=== PATIENT | female | born 1970 | race Caucasian/White ===

== ENCOUNTER 2016-09-23 01:23 | Emergency (ER) | payer OTHER ==
--- NOTE | 2016-09-23 02:32 | DIAGNOSTIC IMAGING REPORT ---
PROCEDURE: XR CHEST 2 VIEW INDICATION: SHORTNESS OF BREATH TECHNIQUE: PA and lateral views. COMPARISON: None. FINDINGS: Lungs are clear. Heart and mediastinum are normal. There is an epidural infusion device overlying the posterior thoracic spinal canal. Thorax is otherwise normal. Status post cholecystectomy. IMPRESSION: 1. Negative chest.
--- NOTE | 2016-09-23 02:38 | DIAGNOSTIC IMAGING REPORT ---
PROCEDURE: XR SOFT TISSUE NECK INDICATION: DIFFICULTY SWALLOWING TECHNIQUE: AP and lateral views. COMPARISON: None. FINDINGS: Allowing for extension of the neck, soft tissues are within normal limits, including the airway, laryngeal ventricle, and epiglottis. Mild prominence of the nasopharyngeal structures which is within normal limits). Impacted posterior upper molars. appears normal. IMPRESSION: 1. Negative soft tissues of the neck.
--- NOTE | 2016-09-23 02:56 | ED CLINICAL REPORT ---
Clinical Report - Physicians/Mid Levels [facility] [address] [place] [address] 09/23/2016 1:25 Patient: KAMERON BOWMAN Time Seen: 01:44 Sep 23 2016. Arrived- By private vehicle. Historian- patient. CPT: ER phys charges level 3 (#[id number]). HISTORY OF PRESENT ILLNESS Chief Complaint: COUGH. dyspnea. This started just prior to arrival ( pt reports a "coughing attack" lasting about 30 minutes unable to catch breath. not c/o sore throat and difficulty talking). She has had a cough. and is still present. The illness is described as moderate. The patient has had a cough, difficulty breathing and a sore throat. No chest discomfort, fever, muscle aches, chills or sinus pressure. Additional history - No known contact with a sick individual. Similar symptoms previously: Recent medical care: Not recently seen/assessed. REVIEW OF SYSTEMS No headache, nausea, vomiting, diarrhea or abdominal pain. No pedal edema, calf pain, difficulty with urination, skin rash or enlarged lymph nodes. All systems otherwise negative, except as recorded above. PAST HISTORY Migraine Headache. Dysautonomia. Asthma. Chronic regional pain syndrome. ADDITIONAL SURGERIES: Spinal cord stimulator. Medications: Unable to Obtain. Allergies: Unknown. SOCIAL HISTORY Never smoker. No alcohol use or drug use. ADDITIONAL NOTES The nursing notes have been reviewed. PHYSICAL EXAM Vital Signs: 09/23/2016 01:29 BP: 109/76. HR: 72. RR: 18. O2 saturation: 99%. Temp: 97.3 F. Pain level now: 7/10. Appearance: Alert. Eyes: Eyes normal inspection. ENT: Ears normal. Nose normal. Pharynx normal. Uvula midline. Neck: Normal inspection. Neck supple. CVS: Normal heart rate and rhythm. Heart sounds normal. Pulses normal. Respiratory: No respiratory distress. Breath sounds normal. Abdomen: Soft and nontender. Back: Normal inspection. Skin: Skin warm. Normal skin color. No rash. Extremities: Extremities exhibit normal ROM. Neuro: Oriented X 3. No motor deficit. No sensory deficit. LABS, X-RAYS, AND EKG Chest X-ray: Normal Chest X-Ray. Note - Tests: (soft tissue neck negative.). PROGRESS AND PROCEDURES Course of Care: Pt did not have any respiratory distress or cough while in the ER. Albuterol HHN: Patient is stable. Symptoms better. Patient/family counseled. Disposition: Discharged. Condition: stable and improved. CLINICAL IMPRESSION Transient coughing spell due to airway irritant. INSTRUCTIONS Drink plenty of fluids. Warnings: Further evaluation is necessary. GENERAL WARNINGS: Return or contact your physician immediately if your condition worsens or changes unexpectedly, if not improving as expected, or if other problems arise. Prescription Medications: Albuterol HFA oral inhaler: inhale 1-2 puffs via spacer every 4 hours as needed for wheezing, difficulty breathing or shortness of breath, until symptoms improve. Dispense one (1) unit. No refill. Follow-up: Follow up with your doctor as needed. Understanding of the discharge instructions verbalized by patient and family. (Electronically signed by Saroj Blount MD 09/27/2016 20:52)
--- NOTE | 2016-09-23 02:56 | ED ORDER SUMMARY ---
..... Patient: KAMERON BOWMAN OrderSheet [facility] VisitID: [id number] [address] [place] [address] 46y, F Registration Date/Time: 09/23/2016 ORDER SHEET Weight: 52.1 kg (stated) Allergies: Unknown GENERAL ORDERS: Chest 2V Urgent (01:50 09/23/2016 Yeyo CHRISTINE) (Ack 2:07 [facility] Subscription Agent) (2:20 [facility] Subscription Agent) Soft Tissue Neck Urgent (:50 09/23/2016 Yeyo CHRISTINE) (Ack 2:07 [facility] Subscription Agent) (2:20 [facility] Subscription Agent) MEDICATION ORDERS: Albuterol Neb Tx 2.5 mg (NOW, HHN) (01:50 09/23/2016 Yeyo CHRISTINE) (Ack 1:54 [facility] R.N.) ([facility] IV FLUIDS: ORDER SHEET NOTES: [Electronically signed by Kimberly Zapata R.N. (03:38 09/23/2016)] [Electronically signed by Saroj Blount MD (20:52 09/27/2016)] [Electronically locked/signed by Kimberly Zapata R.N. (03:38 09/23/2016)]
--- NOTE | 2016-09-23 02:56 | ED ORDER SUMMARY ---
..... Patient: KAMERON BOWMAN OrderSheet [facility] VisitID: [id number] [address] [place] [address] 46y, F Registration Date/Time: 09/23/2016 ORDER SHEET Weight: 52.1 kg (stated) Allergies: Unknown GENERAL ORDERS: Chest 2V Urgent (01:50 09/23/2016 Yeyo CHRISTINE) (Ack 2:07 [facility] Packer Denture) (2:20 [facility] Packer Denture) Soft Tissue Neck Urgent (:50 09/23/2016 Yeyo CHRISTINE) (Ack 2:07 [facility] Packer Denture) (2:20 [facility] Packer Denture) MEDICATION ORDERS: Albuterol Neb Tx 2.5 mg (NOW, HHN) (01:50 09/23/2016 Yeyo CRHISTINE) (Ack 1:54 Arpit R.N.) (2:[facility] IV FLUIDS: ORDER SHEET NOTES: [Electronically signed by Kimberly Zapata R.N. (03:38 09/23/2016)] [Electronically signed by Saroj Blount MD (20:52 09/27/2016)] [Electronically locked/signed by Kimberly Zapata R.N. (03:38 09/23/2016)]
--- NOTE | 2016-09-23 02:56 | ED NURSING NOTES ---
Clinical Report - Nurses [place] [address] [place] [address] 09/23/2016 1:25 Patient: KAMERON BOWMAN TRIAGE Triage time 01:25. Acuity: LEVEL 3. Chief Complaint: SHORTNESS OF BREATH and COUGH. --01:36 Kimberly Zapata R.N. 01:29 09/23/16. BP: 109/76 taken on the right arm, while lying. HR: 72 (regular and normal rate). RR: 18 (regular and unlabored). O2 saturation: 99% on room air. Temp: 97.3 F (oral). Pain level now: 11/14. --01:36 Kimberly Zapata R.N. Weight: 52.1 kg stated. Height/Length: 63 inches Per Patient. BMI: 20.4. --01:30 Kimberly Zapata R.N. Medications Unable to Obtain. --03:37 Kimberly Zapata R.N. Allergies Unknown. --03:37 Kimberly Zapata R.N. History Arrived by EMS. Historian: patient. Unaccompanied. Primary physician (benito). This started just prior to arrival. ( pt reports a "coughing attack" lasting about 30 minutes unable to catch breath. not c/o sore throat and difficulty talking). She has had a cough. PAST MEDICAL HX: Last normal menstrual period- 7 days ago. SOCIAL HX: Never smoker. No alcohol use or drug use. No infectious disease exposure. ABUSE ASSESSMENT: No report of abuse. SELF HARM ASSESSMENT: A self harm assessment was performed. The patient answered "no" to the question "Have you recently felt down, depressed, or hopeless?", "Have you noticed less interest or pleasure in doing things?", "Do you have thoughts of harming or killing yourself?", "Are you here because you tried to hurt yourself?", "Have you ever tried to hurt yourself before today?", "Have you recently had thoughts about harming or killing others?" and "Do you have any dangerous items in your possession?". FALL RISK ASSESSMENT: Fall risk assessment completed. No fall risk identified. NUTRITIONAL RISK ASSESSMENT: The nutritional risk assessment revealed no deficiencies. FUNCTIONAL ASSESSMENT: Functional assessment: no impairments noted. LEARNING NEEDS ASSESSMENT: The learning needs assessment revealed no barriers. SKIN INTEGRITY ASSESSMENT: Skin integrity risk assessment completed. No skin integrity risk identified. --01:36 Kimberly Zapata R.N. SOCIAL HX: ( pt unable to give med hx and allergy hx at this time.). --03:37 Kimberly Zapata R.N. PROBLEMS: Migraine Headache. Dysautonomia. Asthma. Chronic regional pain syndrome. --01:36 Kimberly aZpata R.N. ADDITIONAL SURGERIES: Spinal cord stimulator. --01:36 Kimberly Zapata R.N. Interventions ID band on patient. --01:36 Kimberly Zapata R.N. PHYSICAL ASSESSMENT To room via stretcher. GENERAL / NEURO / PSYCH: Alert. Oriented X 4. Appears in no acute distress. HEENT: Mucous membranes are pink. RESPIRATORY: No respiratory distress. Respirations not labored. Chest nontender. Breath sounds within normal limits. CVS: Normal sinus rhythm noted. Capillary refill less than 2 seconds. GI / : Abdomen soft and nontender. Bowel sounds within normal limits. SKIN: Skin is warm and dry. Normal skin turgor. --01:37 Kimberly Zapata R.N. NURSING PROGRESS NOTES Two patient identifiers checked. Call light placed in reach. Side rails up x 2. Bed placed in lowest position. Brakes of bed on. --01:37 Kimberly Zapata R.N. Patient ready for evaluation- chart flagged. --01:37 Kimberly Zapata R.N. 01:40 09/23/2016 Site #1 started via IV in the right antecubital space with an 20g angiocath, with aseptic technique and good blood return; one attempt. Blood drawn: rainbow set. Labeled in the presence of the patient and sent to the lab. Saline lock flushed with saline. --01:48 Bret Carranza R.N. DISPOSITION / DISCHARGE Departure time: 0321. Condition at departure: improved. No learning barriers present. Discharge instructions provided and reviewed with the patient. Reviewed medication(s) side effects, precautions, dosing and course information. Prescription(s) given to the patient. Patient verbalized understanding. Written instructions provided in Spanish. The patient was discharged home and accompanied by friend. She left the Emergency Department ambulatory and via private vehicle. Driving (friend). --03:36 Kimberly Zapata R.N. 03:24 09/23/16. BP: 142/74. HR: 70. RR: 18. O2 saturation: 99% on room air. Temp: deferred. Pain level now: 07/15. --03:36 Kimberly Zapata R.N. 03:20 09/23/2016 Site #1 removed upon discharge. Catheter intact. Manual pressure and bandage applied. --03:36 Kimberly Zapata R.N. Locked/Released at 09/23/2016 3:38 by Kimberly Zapata R.N.
--- NOTE | 2016-09-23 02:56 | ED CLINICAL REPORT ---
Clinical Report - Physicians/Mid Levels [facility] [address] [place] [address] 09/23/2016 1:25 Patient: KAMERON BOWMAN Time Seen: 01:44 Sep 23 2016. Arrived- By private vehicle. Historian- patient. CPT: ER phys charges level 3 (#[id number]). HISTORY OF PRESENT ILLNESS Chief Complaint: COUGH. dyspnea. This started just prior to arrival ( pt reports a "coughing attack" lasting about 30 minutes unable to catch breath. not c/o sore throat and difficulty talking). She has had a cough. and is still present. The illness is described as moderate. The patient has had a cough, difficulty breathing and a sore throat. No chest discomfort, fever, muscle aches, chills or sinus pressure. Additional history - No known contact with a sick individual. Similar symptoms previously: Recent medical care: Not recently seen/assessed. REVIEW OF SYSTEMS No headache, nausea, vomiting, diarrhea or abdominal pain. No pedal edema, calf pain, difficulty with urination, skin rash or enlarged lymph nodes. All systems otherwise negative, except as recorded above. PAST HISTORY Migraine Headache. Dysautonomia. Asthma. Chronic regional pain syndrome. ADDITIONAL SURGERIES: Spinal cord stimulator. Medications: Unable to Obtain. Allergies: Unknown. SOCIAL HISTORY Never smoker. No alcohol use or drug use. ADDITIONAL NOTES The nursing notes have been reviewed. PHYSICAL EXAM Vital Signs: 09/23/2016 01:29 BP: 109/76. HR: 72. RR: 18. O2 saturation: 99%. Temp: 97.3 F. Pain level now: 7/10. Appearance: Alert. Eyes: Eyes normal inspection. ENT: Ears normal. Nose normal. Pharynx normal. Uvula midline. Neck: Normal inspection. Neck supple. CVS: Normal heart rate and rhythm. Heart sounds normal. Pulses normal. Respiratory: No respiratory distress. Breath sounds normal. Abdomen: Soft and nontender. Back: Normal inspection. Skin: Skin warm. Normal skin color. No rash. Extremities: Extremities exhibit normal ROM. Neuro: Oriented X 3. No motor deficit. No sensory deficit. LABS, X-RAYS, AND EKG Chest X-ray: Normal Chest X-Ray. Note - Tests: (soft tissue neck negative.). PROGRESS AND PROCEDURES Course of Care: Pt did not have any respiratory distress or cough while in the ER. Albuterol HHN: Patient is stable. Symptoms better. Patient/family counseled. Disposition: Discharged. Condition: stable and improved. CLINICAL IMPRESSION Transient coughing spell due to airway irritant. INSTRUCTIONS Drink plenty of fluids. Warnings: Further evaluation is necessary. GENERAL WARNINGS: Return or contact your physician immediately if your condition worsens or changes unexpectedly, if not improving as expected, or if other problems arise. Prescription Medications: Albuterol HFA oral inhaler: inhale 1-2 puffs via spacer every 4 hours as needed for wheezing, difficulty breathing or shortness of breath, until symptoms improve. Dispense one (1) unit. No refill. Follow-up: Follow up with your doctor as needed. Understanding of the discharge instructions verbalized by patient and family. (Electronically signed by Saroj Blount MD 09/27/2016 20:52)
--- NOTE | 2016-09-27 20:52 | ED MAR SUMMARY ---
..... Medication Administration Record [facility] [address] [place] [address] Patient: KAMERON BOWMAN Visit ID: [id number] 46y, F Weight: 52.1 kg Height/Length: 63 in BMI: 20.4 ALLERGIES: Unknown Given 02:03 09/23/2016 Luis Jones, Medication Administered: ALBUTEROL [NEB TX], Dose: 1 unit dose Neb TX. Medication Ordered: Albuterol Neb Tx 2.5 mg (NOW, N).
--- NOTE | 2016-09-27 20:52 | ED MAR SUMMARY ---
..... Medication Administration Record [facility] [address] [place] [address] Patient: KAMERON BOWMAN Visit ID: [id number] 46y, F Weight: 52.1 kg Height/Length: 63 in BMI: 20.4 ALLERGIES: Unknown Given 02:03 09/23/2016 Luis Jones, Medication Administered: ALBUTEROL [NEB TX], Dose: 1 unit dose Neb TX. Medication Ordered: Albuterol Neb Tx 2.5 mg (NOW, N).
--- NOTE | 2016-09-27 20:52 | ED DISCHARGE INSTRUCTIONS ---
Patient: KAMERON BOWMAN General Instructions [facility] VisitID: [id number] [address] [place] [address] 46y, F Registration Date/Time: 09/23/2016 Transient coughing spell due to airway irritant. INSTRUCTIONS Drink plenty of fluids. Warnings: Further evaluation is necessary. GENERAL WARNINGS: Return or contact your physician immediately if your condition worsens or changes unexpectedly, if not improving as expected, or if other problems arise. Prescription Medications: Albuterol HFA oral inhaler: inhale 1-2 puffs via spacer every 4 hours as needed for wheezing, difficulty breathing or shortness of breath, until symptoms improve. Dispense one (1) unit. No refill. Follow-up: Follow up with your doctor as needed. Understanding of the discharge instructions verbalized by patient and family. ADDITIONAL INFORMATION Albuterol Sulfate Pressurized inhalation, suspension What is this medicine? ALBUTEROL (al BYOO ter ole) is a bronchodilator. It helps open up the airways in your lungs to make it easier to breathe. This medicine is used to treat and to prevent bronchospasm. How should I use this medicine? This medicine is for inhalation through the mouth. Follow the directions on your prescription label. Take your medicine at regular intervals. Do not use more often than directed. Make sure that you are using your inhaler correctly. Ask you doctor or health care provider if you have any questions. Talk to your journeyman patternmaker regarding the use of this medicine in children. Special care may be needed. What side effects may I notice from receiving this medicine? Side effects that you should report to your doctor or health hearing care practitioner as soon as possible: allergic reactions like skin rash, itching or hives, swelling of the face, lips, or tongue breathing problems chest pain feeling faint or lightheaded, falls high blood pressure irregular heartbeat fever muscle cramps or weakness pain, tingling, numbness in the hands or feet vomiting Side effects that usually do not require medical attention (report to your doctor or health hearing care practitioner if they continue or are bothersome): cough difficulty sleeping headache nervousness or trembling stomach upset stuffy or runny nose throat irritation unusual taste What may interact with this medicine? anti-infectives like chloroquine and pentamidine caffeine cisapride diuretics medicines for colds medicines for depression or for emotional or psychotic conditions medicines for weight loss including some herbal products methadone some antibiotics like clarithromycin, erythromycin, levofloxacin, and linezolid some heart medicines steroid hormones like dexamethasone, cortisone, hydrocortisone theophylline thyroid hormones What if I miss a dose? If you miss a dose, use it as soon as you can. If it is almost time for your next dose, use only that dose. Do not use double or extra doses. Where should I keep my medicine? Keep out of the reach of children. Store at room temperature between 15 and 30 degrees C (59 and 86 degrees F). The contents are under pressure and may burst when exposed to heat or flame. Do not freeze. This medicine does not work as well if it is too cold. Throw away any unused medicine after the expiration date. Inhalers need to be thrown away after the labeled number of puffs have been used or by the expiration date; whichever comes first. Ventolin HFA should be thrown away 12 months after removing from foil pouch. Check the instructions that come with your medicine. What should I tell my health care provider before I take this medicine? They need to know if you have any of the following conditions: diabetes heart disease or irregular heartbeat high blood pressure pheochromocytoma seizures thyroid disease an unusual or allergic reaction to albuterol, levalbuterol, sulfites, other medicines, foods, dyes, or preservatives or trying to get breast-feeding What should I watch for while using this medicine? Tell your doctor or health hearing care practitioner if your symptoms do not improve. Do not use extra albuterol. If your asthma or bronchitis gets worse while you are using this medicine, call your doctor right away. If your mouth gets dry try chewing sugarless gum or sucking hard candy. Drink water as directed. You have been given the following additional information: Albuterol Sulfate Pressurized inhalation, suspension (Electronically signed by Saroj Blount MD 09/27/2016 20:52)
--- NOTE | 2016-09-27 20:52 | ED MED RECONCILIATION SUMMARY ---
Patient: KAMERON BOWMAN Medication Reconciliation Report [facility] VisitID: [id number] [address] [place] [address] 46y, F Registration Date/Time: 09/23/2016 Weight: 52.1 kg Height/Length: 63 in. BMI: 20.4 ALLERGIES: Unknown The patient's Home Medications are listed below: Unable to obtain. The source(s) of the original Home Medication information: Not obtained. The following Medications were given to the patient in the Emergency Department: Albuterol [Neb Tx] Neb TX 1 unit dose, administered: 09/23/2016 2:03:00 AM The following Medications were prescribed to the patient: Albuterol HFA oral inhaler: inhale 1-2 puffs via spacer every 4 hours as needed for wheezing, difficulty breathing or shortness of breath, until symptoms improve. Dispense one (1) unit. No refill. -- Saroj Blount MD
--- NOTE | 2016-09-27 20:52 | ED DISCHARGE INSTRUCTIONS ---
Patient: KAMERON BOWMAN General Instructions [facility] VisitID: [id number] [address] [place] [address] 46y, F Registration Date/Time: 09/23/2016 Transient coughing spell due to airway irritant. INSTRUCTIONS Drink plenty of fluids. Warnings: Further evaluation is necessary. GENERAL WARNINGS: Return or contact your physician immediately if your condition worsens or changes unexpectedly, if not improving as expected, or if other problems arise. Prescription Medications: Albuterol HFA oral inhaler: inhale 1-2 puffs via spacer every 4 hours as needed for wheezing, difficulty breathing or shortness of breath, until symptoms improve. Dispense one (1) unit. No refill. Follow-up: Follow up with your doctor as needed. Understanding of the discharge instructions verbalized by patient and family. ADDITIONAL INFORMATION Albuterol Sulfate Pressurized inhalation, suspension What is this medicine? ALBUTEROL (al BYOO ter ole) is a bronchodilator. It helps open up the airways in your lungs to make it easier to breathe. This medicine is used to treat and to prevent bronchospasm. How should I use this medicine? This medicine is for inhalation through the mouth. Follow the directions on your prescription label. Take your medicine at regular intervals. Do not use more often than directed. Make sure that you are using your inhaler correctly. Ask you doctor or health care provider if you have any questions. Talk to your window installer regarding the use of this medicine in children. Special care may be needed. What side effects may I notice from receiving this medicine? Side effects that you should report to your doctor or health critical care physician assistant as soon as possible: allergic reactions like skin rash, itching or hives, swelling of the face, lips, or tongue breathing problems chest pain feeling faint or lightheaded, falls high blood pressure irregular heartbeat fever muscle cramps or weakness pain, tingling, numbness in the hands or feet vomiting Side effects that usually do not require medical attention (report to your doctor or health critical care physician assistant if they continue or are bothersome): cough difficulty sleeping headache nervousness or trembling stomach upset stuffy or runny nose throat irritation unusual taste What may interact with this medicine? anti-infectives like chloroquine and pentamidine caffeine cisapride diuretics medicines for colds medicines for depression or for emotional or psychotic conditions medicines for weight loss including some herbal products methadone some antibiotics like clarithromycin, erythromycin, levofloxacin, and linezolid some heart medicines steroid hormones like dexamethasone, cortisone, hydrocortisone theophylline thyroid hormones What if I miss a dose? If you miss a dose, use it as soon as you can. If it is almost time for your next dose, use only that dose. Do not use double or extra doses. Where should I keep my medicine? Keep out of the reach of children. Store at room temperature between 15 and 30 degrees C (59 and 86 degrees F). The contents are under pressure and may burst when exposed to heat or flame. Do not freeze. This medicine does not work as well if it is too cold. Throw away any unused medicine after the expiration date. Inhalers need to be thrown away after the labeled number of puffs have been used or by the expiration date; whichever comes first. Ventolin HFA should be thrown away 12 months after removing from foil pouch. Check the instructions that come with your medicine. What should I tell my health care provider before I take this medicine? They need to know if you have any of the following conditions: diabetes heart disease or irregular heartbeat high blood pressure pheochromocytoma seizures thyroid disease an unusual or allergic reaction to albuterol, levalbuterol, sulfites, other medicines, foods, dyes, or preservatives or trying to get breast-feeding What should I watch for while using this medicine? Tell your doctor or health critical care physician assistant if your symptoms do not improve. Do not use extra albuterol. If your asthma or bronchitis gets worse while you are using this medicine, call your doctor right away. If your mouth gets dry try chewing sugarless gum or sucking hard candy. Drink water as directed. You have been given the following additional information: Albuterol Sulfate Pressurized inhalation, suspension (Electronically signed by Saroj Blount MD 09/27/2016 20:52)
--- NOTE | 2016-09-27 20:52 | ED MED RECONCILIATION SUMMARY ---
Patient: KAMERON BOWMAN Medication Reconciliation Report [facility] VisitID: [id number] [address] [place] [address] 46y, F Registration Date/Time: 09/23/2016 Weight: 52.1 kg Height/Length: 63 in. BMI: 20.4 ALLERGIES: Unknown The patient's Home Medications are listed below: Unable to obtain. The source(s) of the original Home Medication information: Not obtained. The following Medications were given to the patient in the Emergency Department: Albuterol [Neb Tx] Neb TX 1 unit dose, administered: 09/23/2016 2:03:00 AM The following Medications were prescribed to the patient: Albuterol HFA oral inhaler: inhale 1-2 puffs via spacer every 4 hours as needed for wheezing, difficulty breathing or shortness of breath, until symptoms improve. Dispense one (1) unit. No refill. -- Saroj Blount MD
== END 2016-09-23 03:21 | disposition home or self-care (01) ==
LOC: ED SRH 01:23
DX: R05 Cough (principal)